=== PATIENT | female | born 1985 | race African-American/Black ===

== ENCOUNTER 2020-05-25 07:11 | Day surgery (SDC) | payer OTHER, MEDICAID ==
[~2020-05-25] VITALS: Ht 152.4 cm; Wt 113.0 kg
--- NOTE | 2020-05-25 06:54 | PREOP HP ---
DATE OF SERVICE: HISTORY OF PRESENT ILLNESS: The patient is referred by Dr. Hallman because of a mass of the left wrist for about 2-3 months in duration. She has some pain of that wrist and therefore was sent here. PAST MEDICAL HISTORY: Shows normal childhood diseases. She does take lisinopril for hypertension, but no other medical diseases. PAST SURGICAL HISTORY: She has had surgery with 5 C-sections. About 4 or 5 months ago, she had a gastric sleeve for obesity and has had a tonsillectomy and hysterectomy. ALLERGIES: THE PATIENT IS ALLERGIC TO PERCOCET, but not hydrocodone. FAMILY HISTORY: Basically noncontributory. REVIEW OF SYSTEMS: Negative and that she has had the surgery and is doing well, but does have this mass, which is painful at times of the dorsal aspect of the left wrist. SOCIAL HISTORY: Shows that she does not use drugs or smoke and does not drink. PHYSICAL EXAMINATION: GENERAL: Shows an obese female in no acute distress. HEAD, EYES, NOSE AND THROAT: Grossly normal. CHEST: Clear bilaterally to auscultation. HEART: Had no murmurs, heaves, friction rubs or thrills, and the rate was 70 beats per minute and it was regular. ABDOMEN: Negative except for the multiple scars of previous laparoscopic procedures. PELVIC: Not done. EXTREMITIES: Grossly normal, but the left wrist does on the dorsal aspect had about a 3-4 cm mass at the central to medial portion of the left wrist dorsally. It is not tender and there is no evidence of redness or other abnormalities. Very minimally tender to palpation, but not to just feeling when using it normally. She does have some pain when used from time to time. IMPRESSION: 1. Morbid obesity. 2. Hypertension. 3. Ganglion, left wrist. REBECA JAMES MD DR: JHONNY/kamari JOB#: [id number] / [id number]
[~2020-05-25 07:11] MED LIST: AMIT75TA PO; CYCL10TA2 PO; HYDROmorphone 2 MG/ML VIAL IV PRN; IV RINGERS,LACTATED 1000ML 1,000 ML IV SCH; LABE300T2 PO; LIDOCAINE 1% PF 2 ML VIAL. ID PRN; MORPHINE SULFATE 2 MG/ML VIAL. IV PRN; NIFE60TA41 PO; ONDANSETRON PF 4 MG/2 ML VIAL. IV PRN; PROCHLORPERAZINE 10 MG/2 ML VIAL. IV PRN; ceFAZolin SODIUM IV Push 1 GM VIAL. IVP PRN; fentaNYL PF VIAL 100 MCG/2 ML VIAL IV PRN
[2020-05-25] MEDS ORDERED: LIDOCAINE 1%/EPI 1:100,000 20 ML VIAL. ONE (07:43)
[2020-05-25 07:54] LABS: BASO # 0.1 x10^3/uL (0.0-0.2); BASO % 1 % (0-3); EOS # 0.3 x10^3/uL (0.0-0.7); EOS % 4 % (0-3); HEMATOCRIT 35.9 % (36.0-47.0); HEMOGLOBIN 11.7 g/dL (12.0-15.5); LYMPH # 2.1 x10^3/uL (1.0-4.8); LYMPH % 38 % (24-48); MEAN CORPUSCULAR HEMOGLOBIN 26 pg (25-35); MEAN CORPUSCULAR HGB CONC 33 g/dL (31-37); MEAN CORPUSCULAR VOLUME 79 fL (79-100); MONO # 0.4 x10^3/uL (0.0-1.1); MONO % 8 % (0-9); NEUT # 2.8 x10^3/uL (1.8-7.7); NEUT % 49 % (31-73); PLATELET COUNT 333 x10^3/uL (140-400); RED BLOOD COUNT 4.57 x10^6/uL (3.50-5.40); RED CELL DISTRIBUTION WIDTH 15.5 % (11.5-14.5); WHITE BLOOD COUNT 5.6 x10^3/uL (4.0-11.0)
[2020-05-25 08:05] LABS: CALCIUM 8.8 mg/dL (8.5-10.1); GFR 76.8; POTASSIUM 3.5 mmol/L (3.5-5.1)
[2020-05-25 08:07] LABS: PROTHROMBIN TIME PATIENT 16.3 SEC (11.7-14.0)
[2020-05-25 08:10] LABS: ALBUMIN 3.4 g/dL (3.4-5.0); ALBUMIN/GLOBULIN RATIO 0.8 (1.0-1.7); TOTAL BILIRUBIN 0.4 mg/dL (0.2-1.0); TOTAL PROTEIN 7.8 g/dL (6.4-8.2)
--- NOTE | 2020-05-25 08:59 | PDOC ---
SURGICAL PROGRESS NOTE DATE: 05/25/20 TIME: 08:58 no change in dictated H&P. INR 1.4 and swill repeat. Now states to be allergic to Percocet Takes hydrocodone without problems. Vital Signs Vital Signs Date Time Temp Pulse Resp B/P (MAP) Pulse Ox O2 Delivery O2 Flow Rate FiO2 05/25/20 07:38 97.4 70 20 96 97.4 05/25/20 07:31 145/91 Room Air Labs Laboratory Tests Test 05/25/20 07:40 White Blood Count 5.6 x10^3/uL (4.0-11.0) Red Blood Count 4.57 x10^6/uL (3.50-5.40) Hemoglobin 11.7 g/dL (12.0-15.5) Hematocrit 35.9 % (36.0-47.0) Mean Corpuscular Volume 79 fL (79-100) Mean Corpuscular Hemoglobin 26 pg (25-35) Mean Corpuscular Hemoglobin Concent 33 g/dL (31-37) Red Cell Distribution Width 15.5 % (11.5-14.5) Platelet Count 333 x10^3/uL (140-400) Neutrophils (%) (Auto) 49 % (31-73) Lymphocytes (%) (Auto) 38 % (24-48) Monocytes (%) (Auto) 8 % (0-9) Eosinophils (%) (Auto) 4 % (0-3) Basophils (%) (Auto) 1 % (0-3) Neutrophils # (Auto) 2.8 x10^3/uL (1.8-7.7) Lymphocytes # (Auto) 2.1 x10^3/uL (1.0-4.8) Monocytes # (Auto) 0.4 x10^3/uL (0.0-1.1) Eosinophils # (Auto) 0.3 x10^3/uL (0.0-0.7) Basophils # (Auto) 0.1 x10^3/uL (0.0-0.2) Prothrombin Time 16.3 SEC (11.7-14.0) Prothromb Time International Ratio 1.4 (0.8-1.1) Sodium Level 139 mmol/L (136-145) Potassium Level 3.5 mmol/L (3.5-5.1) Chloride Level 104 mmol/L (98-107) Carbon Dioxide Level 26 mmol/L (21-32) Anion Gap 9 (6-14) Blood Urea Nitrogen 9 mg/dL (7-20) Creatinine 1.0 mg/dL (0.6-1.0) Estimated GFR (Cockcroft-Gault) 76.8 BUN/Creatinine Ratio 9 (6-20) Glucose Level 90 mg/dL (70-99) Calcium Level 8.8 mg/dL (8.5-10.1) Total Bilirubin 0.4 mg/dL (0.2-1.0) Aspartate Amino Transf (AST/SGOT) 15 U/L (15-37) Alanine Aminotransferase (ALT/SGPT) 20 U/L (14-59) Alkaline Phosphatase 99 U/L (46-116) Total Protein 7.8 g/dL (6.4-8.2) Albumin 3.4 g/dL (3.4-5.0) Albumin/Globulin Ratio 0.8 (1.0-1.7) Laboratory Tests Test 05/25/20 07:40 White Blood Count 5.6 x10^3/uL (4.0-11.0) Red Blood Count 4.57 x10^6/uL (3.50-5.40) Hemoglobin 11.7 g/dL (12.0-15.5) Hematocrit 35.9 % (36.0-47.0) Mean Corpuscular Volume 79 fL (79-100) Mean Corpuscular Hemoglobin 26 pg (25-35) Mean Corpuscular Hemoglobin Concent 33 g/dL (31-37) Red Cell Distribution Width 15.5 % (11.5-14.5) Platelet Count 333 x10^3/uL (140-400) Neutrophils (%) (Auto) 49 % (31-73) Lymphocytes (%) (Auto) 38 % (24-48) Monocytes (%) (Auto) 8 % (0-9) Eosinophils (%) (Auto) 4 % (0-3) Basophils (%) (Auto) 1 % (0-3) Neutrophils # (Auto) 2.8 x10^3/uL (1.8-7.7) Lymphocytes # (Auto) 2.1 x10^3/uL (1.0-4.8) Monocytes # (Auto) 0.4 x10^3/uL (0.0-1.1) Eosinophils # (Auto) 0.3 x10^3/uL (0.0-0.7) Basophils # (Auto) 0.1 x10^3/uL (0.0-0.2) Prothrombin Time 16.3 SEC (11.7-14.0) Prothromb Time International Ratio 1.4 (0.8-1.1) Sodium Level 139 mmol/L (136-145) Potassium Level 3.5 mmol/L (3.5-5.1) Chloride Level 104 mmol/L (98-107) Carbon Dioxide Level 26 mmol/L (21-32) Anion Gap 9 (6-14) Blood Urea Nitrogen 9 mg/dL (7-20) Creatinine 1.0 mg/dL (0.6-1.0) Estimated GFR (Cockcroft-Gault) 76.8 BUN/Creatinine Ratio 9 (6-20) Glucose Level 90 mg/dL (70-99) Calcium Level 8.8 mg/dL (8.5-10.1) Total Bilirubin 0.4 mg/dL (0.2-1.0) Aspartate Amino Transf (AST/SGOT) 15 U/L (15-37) Alanine Aminotransferase (ALT/SGPT) 20 U/L (14-59) Alkaline Phosphatase 99 U/L (46-116) Total Protein 7.8 g/dL (6.4-8.2) Albumin 3.4 g/dL (3.4-5.0) Albumin/Globulin Ratio 0.8 (1.0-1.7) REBECA JAMES MD May 25, 2020 08:59
--- NOTE | 2020-05-25 09:09 | PDOC ---
SURGICAL PROGRESS NOTE DATE: 05/25/20 TIME: 08:59 Op Note: Surgeon...................................sebastian Pre and post op diag..................ganglion dorsal aspect left wrist Anesthesia...............................general Procedure................................excision mass left wrist Blood loss................................10cc Fluids......................................see anesthesia sheet Drains.....................................none condition.................................satisfactory Vital Signs Vital Signs Date Time Temp Pulse Resp B/P (MAP) Pulse Ox O2 Delivery O2 Flow Rate FiO2 05/25/20 07:38 97.4 70 20 96 97.4 05/25/20 07:31 145/91 Room Air Labs Laboratory Tests Test 05/25/20 07:40 White Blood Count 5.6 x10^3/uL (4.0-11.0) Red Blood Count 4.57 x10^6/uL (3.50-5.40) Hemoglobin 11.7 g/dL (12.0-15.5) Hematocrit 35.9 % (36.0-47.0) Mean Corpuscular Volume 79 fL (79-100) Mean Corpuscular Hemoglobin 26 pg (25-35) Mean Corpuscular Hemoglobin Concent 33 g/dL (31-37) Red Cell Distribution Width 15.5 % (11.5-14.5) Platelet Count 333 x10^3/uL (140-400) Neutrophils (%) (Auto) 49 % (31-73) Lymphocytes (%) (Auto) 38 % (24-48) Monocytes (%) (Auto) 8 % (0-9) Eosinophils (%) (Auto) 4 % (0-3) Basophils (%) (Auto) 1 % (0-3) Neutrophils # (Auto) 2.8 x10^3/uL (1.8-7.7) Lymphocytes # (Auto) 2.1 x10^3/uL (1.0-4.8) Monocytes # (Auto) 0.4 x10^3/uL (0.0-1.1) Eosinophils # (Auto) 0.3 x10^3/uL (0.0-0.7) Basophils # (Auto) 0.1 x10^3/uL (0.0-0.2) Prothrombin Time 16.3 SEC (11.7-14.0) Prothromb Time International Ratio 1.4 (0.8-1.1) Sodium Level 139 mmol/L (136-145) Potassium Level 3.5 mmol/L (3.5-5.1) Chloride Level 104 mmol/L (98-107) Carbon Dioxide Level 26 mmol/L (21-32) Anion Gap 9 (6-14) Blood Urea Nitrogen 9 mg/dL (7-20) Creatinine 1.0 mg/dL (0.6-1.0) Estimated GFR (Cockcroft-Gault) 76.8 BUN/Creatinine Ratio 9 (6-20) Glucose Level 90 mg/dL (70-99) Calcium Level 8.8 mg/dL (8.5-10.1) Total Bilirubin 0.4 mg/dL (0.2-1.0) Aspartate Amino Transf (AST/SGOT) 15 U/L (15-37) Alanine Aminotransferase (ALT/SGPT) 20 U/L (14-59) Alkaline Phosphatase 99 U/L (46-116) Total Protein 7.8 g/dL (6.4-8.2) Albumin 3.4 g/dL (3.4-5.0) Albumin/Globulin Ratio 0.8 (1.0-1.7) Laboratory Tests Test 05/25/20 07:40 White Blood Count 5.6 x10^3/uL (4.0-11.0) Red Blood Count 4.57 x10^6/uL (3.50-5.40) Hemoglobin 11.7 g/dL (12.0-15.5) Hematocrit 35.9 % (36.0-47.0) Mean Corpuscular Volume 79 fL (79-100) Mean Corpuscular Hemoglobin 26 pg (25-35) Mean Corpuscular Hemoglobin Concent 33 g/dL (31-37) Red Cell Distribution Width 15.5 % (11.5-14.5) Platelet Count 333 x10^3/uL (140-400) Neutrophils (%) (Auto) 49 % (31-73) Lymphocytes (%) (Auto) 38 % (24-48) Monocytes (%) (Auto) 8 % (0-9) Eosinophils (%) (Auto) 4 % (0-3) Basophils (%) (Auto) 1 % (0-3) Neutrophils # (Auto) 2.8 x10^3/uL (1.8-7.7) Lymphocytes # (Auto) 2.1 x10^3/uL (1.0-4.8) Monocytes # (Auto) 0.4 x10^3/uL (0.0-1.1) Eosinophils # (Auto) 0.3 x10^3/uL (0.0-0.7) Basophils # (Auto) 0.1 x10^3/uL (0.0-0.2) Prothrombin Time 16.3 SEC (11.7-14.0) Prothromb Time International Ratio 1.4 (0.8-1.1) Sodium Level 139 mmol/L (136-145) Potassium Level 3.5 mmol/L (3.5-5.1) Chloride Level 104 mmol/L (98-107) Carbon Dioxide Level 26 mmol/L (21-32) Anion Gap 9 (6-14) Blood Urea Nitrogen 9 mg/dL (7-20) Creatinine 1.0 mg/dL (0.6-1.0) Estimated GFR (Cockcroft-Gault) 76.8 BUN/Creatinine Ratio 9 (6-20) Glucose Level 90 mg/dL (70-99) Calcium Level 8.8 mg/dL (8.5-10.1) Total Bilirubin 0.4 mg/dL (0.2-1.0) Aspartate Amino Transf (AST/SGOT) 15 U/L (15-37) Alanine Aminotransferase (ALT/SGPT) 20 U/L (14-59) Alkaline Phosphatase 99 U/L (46-116) Total Protein 7.8 g/dL (6.4-8.2) Albumin 3.4 g/dL (3.4-5.0) Albumin/Globulin Ratio 0.8 (1.0-1.7) REBECA JAMES MD May 25, 2020 09:09
[2020-05-25 09:23] LABS: PROTHROMBIN TIME PATIENT 16.2 SEC (11.7-14.0)
[2020-05-25] MEDS ORDERED: ONDANSETRON PF 4 MG/2 ML VIAL. ONE (09:48)
[2020-05-25] MEDS ORDERED: fentaNYL PF VIAL 100 MCG/2 ML VIAL ONE ×2 (09:48→11:21)
[2020-05-25] MEDS ORDERED: PROPOFOL 10 MG/ML (20ML) VIAL. IV ONE (09:48)
[2020-05-25] MEDS ORDERED: DEXAMETHASONE SOD PHOS 4 MG/ML VIAL ONE (09:48)
[2020-05-25] MEDS ORDERED: SEVOFLURANE 31 TO 60 MINUTES. IH ONE (10:08)
[2020-05-25] MEDS ORDERED: PHENYLEPHRINE in 0.9% NACL PF 1 MG/10 ML SYRINGE. IV ONE (10:36)
[2020-05-25] MEDS ORDERED: PROCHLORPERAZINE 10 MG/2 ML VIAL. ONE (11:21)
--- NOTE | 2020-05-25 11:45 | DISCH ---
DISCHARGE INSTRUCTIONS Condition on Discharge Condition on Discharge: Stable Activity After Discharge Activity Instructions for Disc: Avoid exertion Diet after Discharge Additional Diet Restrictions: resume pre op diat Wound Incision Care Wound/Incision Care: Do not change dressing Other wound/incision instructi: may change dressing..... but not the op site......prn, elevate wrist Follow-Up Follow up with: Dr cortes 2 weeks....may get the op site wet. REBECA CORTES MD May 25, 2020 11:45
[2020-05-25] MEDS ORDERED: HYDROcodone/APAP 7.5/325MG 1 TAB TABLET PO ONE (12:00)
[2020-05-25] MEDS ORDERED: HYDR-2763 PO (12:00)
[2020-05-25 12:41] VITALS: BP 140/74
--- NOTE | 2020-05-25 23:25 | OP ---
DATE OF SURGERY: 05/25/2020 SURGEON: Ector James MD PREOPERATIVE DIAGNOSIS: Ganglion, dorsal aspect of left wrist. POSTOPERATIVE DIAGNOSIS: Ganglion, dorsal aspect of left wrist. PROCEDURE: Excision of ganglion, left wrist. The technique was that the patient clearly understood that removal of the ganglion does not remain guarantee that it would not recur. She understands that somewhere between 20% and 30% or 35% may recur, she still wishes to have the surgery. She also understands how much of the pain will be postop as it goes down into the joint capsule and tendon sheath. SURGEON: Ector James MD ANESTHESIA: General. TECHNIQUE: Under general anesthesia, the patient was properly prepped and draped in routine fashion exposing the dorsal aspect of the left wrist and she was prepped from the elbow down past and including the hand and fingers. The ganglion was at the medial portion against the dorsal aspect of the wrist laterally just a little bit past the midline and incision was made following the skin lines transversely over this area. We went down through the skin. We got down to the cyst ____ gingerly and you could see the cyst wall. Once we got below Yaneth's into that area, we could see the cyst. We slowly divided and all the tissue around it. Some veins were kept out of the way, they would not cut. We did not use a tourniquet. We went down and went around the cyst all the way around and all fat down to the neck. It went back through the fascia and we opened this a little bit following the cyst down. We got it down to its base and when we went to clamp at the very base on and in the joint capsule, you could feel the bones and this was clamped and also the area was cauterized and we also sutured the base using 4-0 Vicryl to stop some of the small bleeders and we also cauterized as stated before the base of the cyst. The cyst was removed in total and sent to pathology, it did rupture as we were removing it. The resultant defect was inspected and 3-0 Vicryl was used to approximate some of the wrist retinaculum that was and we simply approximated this using that suture. It should be noted 1-2 areas had a small bit of bleeding and this was mostly controlled with pressure. There was no bleeding when we closed and the deeper structures were approximated using 3-0 and 4-0 Vicryl. The skin was closed using a subcuticular 5-0 Vicryl. The procedure was now terminated as sterile Tegaderm dressing was applied and then we applied a splint to the area. The procedure was now terminated. The blood loss was about 5 mL. Fluids given can be obtained from the anesthesia sheet. No drains were used and the condition of the patient was satisfactory as she returned to the recovery room. ECTOR JAMES MD DR: JHONNY/kamari JOB#: [id number] / [id number]
--- NOTE | 2020-05-27 12:07 | PATHOLOGY ---
[facility] Accession Number: [id number] . 01 Material submitted: . wrist - LEFT WRIST GANGLION CYST. Modifiers: left . 01 Clinical history: . GANGLION CYST . 02 Diagnosis: Soft tissue "left wrist", excision: - Tenosynovium with mucinous cystic degeneration, compatible with ganglion cyst. (MLK:apparel merchandiser; 05/26/2020) MBR 05/27/2020 1126 Local . 02 Electronically signed: . Juan Alberto Nair MD, Pathologist NPI- [id number] . 01 Gross description: . The specimen is received in formalin, labeled "Sofia Knox, left wrist ganglion cyst". Received is a segment of pink-hernandez soft tissue measuring 1.3 x 1.0 x 0.5 cm in greatest dimensions. Sectioning reveals a previously ruptured unilocular cystic structure measuring 1.0 cm filled with a slight amount of clear mucoid material. The specimen is bisected and entirely submitted in cassette A1. (CAA; 05/25/2020) QAC/QAC 05/25/2020 1749 Local . 02 Pathologist provided ICD-10: M67.432 . 02 CPT . 056928 Specimen Comment: A courtesy copy of this report has been sent to [phone] Specimen Comment: [id number] Specimen Comment: Report sent to / DR DIAZ Performed at: 01 [facility] [address], [place] [id number] MD Nemesio Hdez MD Phone: [phone] Performed at: 02 [facility] [address], [place] [id number] MD Hi Jaffe MD Phone: [phone]
== END 2020-05-25 13:21 | disposition home or self-care (01) ==
LOC: SURG 07:11
PROVIDERS: ATTEND Specialist
DX: M67.432 Ganglion, left wrist (principal); M65.842 Other synovitis and tenosynovitis, left hand; I10 Essential (primary) hypertension; E66.01 Morbid (severe) obesity due to excess calories; Z68.42 Body mass index [BMI] 45.0-49.9, adult; Z88.5 Allergy status to narcotic agent; Z79.01 Long term (current) use of anticoagulants; Z88.8 Allergy status to other drugs, medicaments and biological substances; Z79.899 Other long term (current) drug therapy
CPT/HCPCS: 36415; 80053; 85025; 85610; 88304; A7015; J0690; J0780; J1100; J2370; J2405; J2704; J3010; J3490

== ENCOUNTER → 2020-08-26 | Outpatient (CLI) | payer OTHER, MEDICAID ==
[~2020-08-26] MED LIST changes: +ACET500T68 PO; +HYDR-2763 PO; -HYDROmorphone 2 MG/ML VIAL IV PRN; -IV RINGERS,LACTATED 1000ML 1,000 ML IV SCH; -LIDOCAINE 1% PF 2 ML VIAL. ID PRN; -MORPHINE SULFATE 2 MG/ML VIAL. IV PRN; -ONDANSETRON PF 4 MG/2 ML VIAL. IV PRN; -PROCHLORPERAZINE 10 MG/2 ML VIAL. IV PRN; -ceFAZolin SODIUM IV Push 1 GM VIAL. IVP PRN; -fentaNYL PF VIAL 100 MCG/2 ML VIAL IV PRN
== END ==
LOC: LAB 10:25
PROVIDERS: ATTEND Orthopaedic Surgery
DX: Z01.812 Encounter for preprocedural laboratory examination (principal); Z20.828 Contact with and (suspected) exposure to other viral communicable diseases
CPT/HCPCS: U0003

== ENCOUNTER 2020-08-30 09:02 | Day surgery (SDC) | payer OTHER, MEDICAID ==
[~2020-08-30] VITALS: Ht 153.7 cm; Wt 115.2 kg
[~2020-08-30 09:02] MED LIST changes: +IV RINGERS,LACTATED 1000ML 1,000 ML IV SCH; +LIDOCAINE 1% PF 2 ML VIAL. ID PRN; +LIDOCAINE 2% PF 5 ML VIAL. ONE; +ONDANSETRON PF 4 MG/2 ML VIAL. IV PRN; +PROCHLORPERAZINE 10 MG/2 ML VIAL. IV PRN; +PROPOFOL 10 MG/ML (20ML) VIAL. IV ONE; +fentaNYL PF VIAL 100 MCG/2 ML VIAL IV PRN; +fentaNYL PF VIAL 100 MCG/2 ML VIAL ONE
[2020-08-30 10:05] LABS: BASO % 0 % (0-3); EOS # 0.3 x10^3/uL (0.0-0.7); EOS % 4 % (0-3); HEMATOCRIT 33.1 % (36.0-47.0); HEMOGLOBIN 10.8 g/dL (12.0-15.5); LYMPH # 2.5 x10^3/uL (1.0-4.8); LYMPH % 36 % (24-48); MEAN CORPUSCULAR HEMOGLOBIN 27 pg (25-35); MEAN CORPUSCULAR HGB CONC 33 g/dL (31-37); MEAN CORPUSCULAR VOLUME 82 fL (79-100); MONO # 0.5 x10^3/uL (0.0-1.1); MONO % 7 % (0-9); NEUT # 3.6 x10^3/uL (1.8-7.7); NEUT % 53 % (31-73); PLATELET COUNT 328 x10^3/uL (140-400); RED BLOOD COUNT 4.07 x10^6/uL (3.50-5.40); RED CELL DISTRIBUTION WIDTH 15.5 % (11.5-14.5); WHITE BLOOD COUNT 6.8 x10^3/uL (4.0-11.0)
[2020-08-30] MEDS ORDERED: HYDR-2763 PO (10:12)
--- NOTE | 2020-08-30 10:14 | DISCH ---
DISCHARGE INSTRUCTIONS Condition on Discharge Condition on Discharge: Stable Activity After Discharge Activity Instructions for Disc: Avoid exertion, Other, see below (Fine motor use allowed with right hand such as eating writing typing, no pushing off or lifting) Lifting Instructions after Dis: No heavy lifting, No pulling or pushing Weight Bearing Status after Di: Non weight bearing Diet after Discharge Diet after Discharge: Regular Additional Diet Restrictions: resume pre op diat Wound Incision Care Wound/Incision Care: Ice to area for comfort, Keep wound elevated, Do not change dressing (Keep dressing intact, call if saturated) Contacting the after DC Call your doctor for: Concerns you may have Follow-Up Follow up with: Dr. Lima 7 to 10 days MARCELLA LIMA MD Aug 30, 2020 10:14
[2020-08-30 10:16] LABS: CALCIUM 8.7 mg/dL (8.5-10.1); CREATININE 0.9 mg/dL (0.6-1.0); GFR 86.7; POTASSIUM 4.2 mmol/L (3.5-5.1)
[2020-08-30] MEDS ORDERED: BUPIVACAINE MPF 0.5% 30 ML VIAL. ONE (10:26)
[2020-08-30] MEDS ORDERED: DEXAMETHASONE SOD PHOS 4 MG/ML VIAL ONE (10:40)
[2020-08-30] MEDS ORDERED: SEVOFLURANE 31 TO 60 MINUTES. IH ONE (10:40)
[2020-08-30] MEDS ORDERED: ONDANSETRON PF 4 MG/2 ML VIAL. ONE (10:40)
[2020-08-30] MEDS ORDERED: HYDROcodone/APAP 7.5/325MG 1 TAB TABLET PO ONE (11:45)
[2020-08-30] MEDS ORDERED: MORPHINE SULFATE 2 MG/ML VIAL. ONE (11:51)
[2020-08-30] MEDS: MORPHINE SULFATE 2 MG/ML VIAL. IV PRN ×2 (11:55→12:04)
[2020-08-30] MEDS ORDERED: HYDROmorphone 2 MG/ML VIAL ONE (12:12)
[2020-08-30] MEDS: HYDROmorphone 2 MG/ML VIAL IV PRN ×4 (12:14→13:11)
[2020-08-30 13:28] VITALS: BP 118/67
--- NOTE | 2020-08-30 15:30 | PDOC4 ---
Operative Note Operative Note Date of surgery: 08/30/2020 Preoperative diagnosis: Displaced intra-articular 2 part right distal radius fracture Postoperative diagnosis: Same Operative procedure: Operative reduction internal fixation right 2 part intra- articular distal radius fracture Surgeon: Janie Agricultural Technician: Mango mota Anesthesia: General Estimated blood loss: 10 cc Complications: None Operative indications: Please see my orthopedic clinic note for detailed operative indications and note that we covered preoperatively the rationale for open reduction and fixation of her displaced intra-articular distal radius fracture to minimize any malalignment at the joint or angulation that could result in further potential weakness or arthritic changes and even under the best of circumstances she may have some stiffness and limitations possibility of infection nonhealing nerve or blood vessel damage medical or other anesthetic complications among others. She agrees to proceed with surgical evaluation and treatment Operative text: Patient was identified procedure verified patient placed in the supine position on the operating table. After adequate amounts of general anesthesia were administered the right upper extremity was prepped and draped in standard sterile fashion with an upper arm tourniquet. After timeout was performed patient procedure identified and verified the right upper extremity was exsanguinated tourniquet inflated to 250 mmHg and a volar Adrian approach was carried out to the distal radius with subperiosteal dissection carried out and near anatomic reduction achieved under fluoroscopic guidance. A Gregory DVR cross lock distal radius plate standard short was selected and placed with a nonlocking shaft screw in the sliding hole for minute adjustment and distal row screws and the radial styloid screw were all placed under fluoroscopic guidance and noted to have excellent placement and anatomic alignment at the radiocarpal joint. Proximal row screws were then placed likewise in a locking fashion and additional shaft screw fixation carried out. All hardware and reduction were again checked under multiple fluoroscopic views there irrigation carried out normal saline solution closure accomplished with subcutaneous Vicryl and subcuticular Monocryl with Steri-Strips and Mastisol and sterile soft dressings applied. Fingers were noted to be warm and pink following deflation of the tourniquet patient was returned to recovery room in stable condition having to lerated procedure well. Mango mota was present for the procedure and assisted in prepping draping positioning retraction closure and dressings MARCELLA BENNETT MD Aug 30, 2020 15:30
== END 2020-08-30 13:50 | disposition home or self-care (01) ==
LOC: SURG 09:02
PROVIDERS: ATTEND Orthopaedic Surgery
DX: S52.571A Other intraarticular fracture of lower end of right radius, initial encounter for closed fracture (principal); I10 Essential (primary) hypertension; G47.30 Sleep apnea, unspecified; E66.9 Obesity, unspecified; M19.90 Unspecified osteoarthritis, unspecified site; F41.9 Anxiety disorder, unspecified; F32.9 Major depressive disorder, single episode, unspecified; Z90.710 Acquired absence of both cervix and uterus; Z98.890 Other specified postprocedural states; Z79.899 Other long term (current) drug therapy; Z72.89 Other problems related to lifestyle; Z88.8 Allergy status to other drugs, medicaments and biological substances; Z68.42 Body mass index [BMI] 45.0-49.9, adult; X58.XXXA Exposure to other specified factors, initial encounter; Y93.89 Activity, other specified; Y92.89 Other specified places as the place of occurrence of the external cause; Y99.8 Other external cause status
CPT/HCPCS: 25608; 36415; 80048; 85025; C1713; J0690; J1100; J1170; J2270; J2405; J2704; J3010; J3490